=== PATIENT | female | born 1980 | race Two or more races ===

== ENCOUNTER 2020-07-09 10:30 | Inpatient (IN) | payer OTHER ==
[~2020-07-09] VITALS: Ht 152.4 cm; Wt 83.0 kg
[~2020-07-09 10:30] MED LIST: CODE1TAB37 PO; LABETALOL HCL200 MG PO; Mylicon 125MG PO; PRENATAL CAPLE1 EACH PO; Relafen PO; SENOKOT TAB1 TAB PO; TRANDATE PO; ZITHROMAX500 MG
[2020-07-15] MEDS ORDERED: IBUPROFEN800 MG PO (06:27)
[2020-07-15] MEDS ORDERED: ANTI-GAS166 MG PO (06:27)
[2020-07-15] MEDS ORDERED: NEURONTIN600 MG PO (06:27)
== END 2020-07-15 11:30 | disposition home or self-care (01) | DRG 743 ==
LOC: MEDI 07-13 07:07 → O/R 07-13 09:32 → SURH 07-13 10:30 → OB/GYN 07-13 10:51 → SURH 07-13 11:00 → OB/GYN 07-15 11:30
PROVIDERS: ADMIT Obstetrics & Gynecology; ATTEND Obstetrics & Gynecology
PROC: 0UB70ZZ Excision of Bilateral Fallopian Tubes, Open Approach (ICD-10-PCS; 2020-07-13)
PROC: 3E0F7SF Introduction of Other Gas into Respiratory Tract, Via Natural or Artificial Opening (ICD-10-PCS; 2020-07-13)
PROC: 0UT90ZZ Resection of Uterus, Open Approach (ICD-10-PCS; principal; 2020-07-13 11:00)
DX: N72 Inflammatory disease of cervix uteri (principal); D25.0 Submucous leiomyoma of uterus; I10 Essential (primary) hypertension